=== PATIENT | female | born 1940 | race Caucasian/White ===

== ENCOUNTER 2018-03-25 16:07 | Emergency (ER) | payer MEDICARE, OTHER ==
[~2018-03-25] VITALS: Ht 152.4 cm; Wt 38.1 kg
--- NOTE | 2018-03-25 16:32 | NUR ---
LACERATION TO SCALP S/P HEAD VS DRESSER DENIES LOC, NECK, OR BACK PAIN
[2018-03-25] MEDS ORDERED: DICLOFENAC SODIUM 1% GEL (16:37)
[2018-03-25] MEDS ORDERED: MIRTAZAPINE 15 MG TABLET (16:37)
[2018-03-25] MEDS ORDERED: PREDNISONE 1 MG TABLET (16:37)
[2018-03-25] MEDS ORDERED: ACETAMINOPHEN ES 500 MG TABLET ONE (16:57)
[2018-03-25] MEDS ORDERED: ACETAMINOPHEN ES 500 MG TABLET PO ONE (17:00)
[2018-03-25 17:14] LABS: BASOPHILS % (AUTO) 0.4 % (0.0-2.0); EOSINOPHILS % (AUTO) 1.4 % (0.0-6.0); HEMATOCRIT 32 % (33-45); HEMOGLOBIN 11.2 g/dL (11.5-14.8); LYMPHOCYTES # (AUTO) 1.5 /CMM (0.8-4.8); LYMPHOCYTES % (AUTO) 25.1 % (20.0-44.0); MEAN CORPUSCULAR HGB CONC 35 g/dl (31.0-36.0); MEAN CORPUSCULAR VOLUME 93 fL (82-100); MONOCYTES # (AUTO) 0.6 /CMM (0.1-1.30); MONOCYTES % (AUTO) 10.5 % (2.0-12.0); NEUTROPHILS # (AUTO) 3.7 /CMM (1.8-8.9); NEUTROPHILS % (AUTO) 62.6 % (43.0-81.0); PLATELET COUNT (AUTO) 243 /CMM (150-450); RDW COEFFICIENT OF VARIATION 11.6 (11.5-15.0); RED BLOOD CELL COUNT(AUTO) 3.47 MIL/uL (4.0-5.2); WHITE BLOOD COUNT (AUTO) 5.9 K/uL (4.3-11.0)
[2018-03-25 17:21] LABS: CARBON DIOXIDE 29 mmol/L (21-32); CHLORIDE 96 mmol/L (98-107); CREATININE 0.9 mg/dL (0.6-1.3); GLUCOSE 138 mg/dL (74-106); SODIUM SERUM 131 mmol/L (136-145); UREA NITROGEN, BLOOD 19 mg/dL (7-18)
[2018-03-25] MEDS ORDERED: IV NS 0.9% 500 ML IV ONE (18:00)
--- NOTE | 2018-03-25 18:37 | NUR ---
Patient discharged to home in stable condition. Written and verbal after care instructions given. Patient verbalizes understanding of instruction.
--- NOTE | 2018-03-25 18:37 | NUR ---
IV removed. Catheter intact and site benign. Pressure and 4x4 applied to site. No bleeding noted.
[2018-03-25 18:39] VITALS: BP 134/74
== END 2018-03-25 18:41 | disposition home or self-care (01) ==
LOC: ER 16:31
DX: S01.01XA Laceration without foreign body of scalp, initial encounter (principal); S40.012A Contusion of left shoulder, initial encounter; W01.0XXA Fall on same level from slipping, tripping and stumbling without subsequent striking against object, initial encounter; Y93.01 Activity, walking, marching and hiking; Y92.091 Bathroom in other non-institutional residence as the place of occurrence of the external cause; Y99.8 Other external cause status
CPT/HCPCS: 36415; 70450-TC; 71045-TC; 72125-TC; 72170-TC; 73030-TC; 73060-TC; 80048-TC; 85025-TC; A4606; A6402; J7040; Z7610

== ENCOUNTER 2018-08-13 09:30 | Inpatient (IN) | payer MEDICARE, OTHER ==
[~2018-08-13] VITALS: Ht 142.2 cm; Wt 49.9 kg
[~2018-08-13 09:30] MED LIST: DICLOFENAC SODIUM 1% GEL; MIRTAZAPINE 15 MG TABLET; PREDNISONE 1 MG TABLET
--- NOTE | 2018-08-13 09:47 | NUR ---
CITLALY FROM HOME DT ABDOMINAL PAIN SINCE LAST NIGHT. PATIENT RECEIVED AWAKE AND ALERT, STILL CO ABDOMINAL DISCOMFORT. PER DTR PATIENT WAS DISCHARGED FROM [facility] DUE TO TONY OBSTRUCTION. PATIENT NOT IN DISTRESS AT THIS TIME. VSS. GOWNED PT AND PLACED ON TELE MONITOR. WILL CONT TO MONITOR
[2018-08-13] MEDS ORDERED: ONDANSETRON HCL/PF 4 MG/2 ML VIAL IVP ONE (10:00)
[2018-08-13] MEDS ORDERED: IV NS 0.9% 500 ML BAG IV ONE (10:00)
[2018-08-13] MEDS ORDERED: ONDANSETRON HCL/PF 4 MG/2 ML VIAL ONE (10:08)
[2018-08-13] MEDS ORDERED: [UNRECOGNIZED DRUG - CODE] IV (10:34)
[2018-08-13] MEDS ORDERED: PRED1TAB PO (10:34)
[2018-08-13] MEDS ORDERED: RANI150T8 PO (10:34)
[2018-08-13] MEDS ORDERED: LIPA1CAP21 PO (10:34)
[2018-08-13 10:39] LABS: CALCIUM, SERUM 8.4 mg/dL (8.5-10.1); CARBON DIOXIDE 23 mmol/L (21-32); CHLORIDE 100 mmol/L (98-107); CREATININE 0.6 mg/dL (0.6-1.3); GLUCOSE 123 mg/dL (74-106); POTASSIUM 3.1 mmol/L (3.5-5.1); SODIUM SERUM 134 mmol/L (136-145); UREA NITROGEN, BLOOD 22 mg/dL (7-18)
[2018-08-13 10:43] LABS: TROPONIN I 0.082 ng/mL (0.00-0.056)
[2018-08-13 10:45] LABS: BASOPHILS % (AUTO) 0.1 % (0.0-2.0); HEMATOCRIT 35 % (33-45); HEMOGLOBIN 11.7 g/dL (11.5-14.8); LYMPHOCYTES % (AUTO) 3.7 % (20.0-44.0); MEAN CORPUSCULAR HGB CONC 34 g/dl (31.0-36.0); MEAN CORPUSCULAR VOLUME 97 fL (82-100); MONOCYTES % (AUTO) 6.6 % (2.0-12.0); NEUTROPHILS % (AUTO) 89.6 % (43.0-81.0); PLATELET COUNT (AUTO) 257 /CMM (150-450); RDW COEFFICIENT OF VARIATION 12.8 (11.5-15.0); RED BLOOD CELL COUNT(AUTO) 3.61 MIL/uL (4.0-5.2); WHITE BLOOD COUNT (AUTO) 15.4 K/uL (4.3-11.0)
[2018-08-13 10:46] LABS: LYMPHOCYTES # (AUTO) 0.6 /CMM (0.8-4.8); NEUTROPHILS # (AUTO) 13.8 /CMM (1.8-8.9)
[2018-08-13 10:47] LABS: ALANINE AMINOTRANSFERASE 21 U/L (12-78); ALBUMIN 2.9 g/dL (3.4-5.0); ALKALINE PHOSPHATASE 79 U/L (46-116); ASPARTATE AMINOTRANSFERASE 34 U/L (15-37); BILIRUBIN,DIRECT 0.7 mg/dL (0.0-0.2); BILIRUBIN,TOTAL 1.2 mg/dL (0.2-1.0); LIPASE 38 U/L (73-393); TOTAL PROTEIN, SERUM 7.4 g/dL (6.4-8.2)
[2018-08-13 10:51] LABS: INR 1.1 (0.85-1.15)
--- NOTE | 2018-08-13 11:36 | NUR ---
CALLED [employer] EKG/ECG TECHNICIAN WAS PAGED.
--- NOTE | 2018-08-13 11:41 | NUR ---
RN NOTES RECEIVED REPORT FROM ER NOTES FOR PATIENT COMING IN FOR BOWEL OBSTRUCTION UNDER THE SERVICE OF [place] LAKE NP. WITH MED SURG ACUITY. ROOM PREPARED. BED ZERO-ED OUT. AWAITING PATIENT'S ARRIVAL
--- NOTE | 2018-08-13 11:41 | NUR ---
REPORT GIVEN TO ADILIA AMES
--- NOTE | 2018-08-13 12:20 | NUR ---
RN NOTES PATIENT CAME IN VIA GURNEY. TRANSPORTED TO BED FOR COMFORT. ALERT AND ORIENTED X2, [place]IZ[place] SPEAKING. WITH NASAL CANNULA AT 2 LPM, SATURATING AT 96, NO SHORTNESS OF BREATH NOTED, AFEBRILE AT 97.8. WITH G 20 IVC ON THE LEFT HAND INTACT AND PATENT ON FLUSHING. WITH COMPLAINTS OF STOMACHACHE DUE TO INABILITY TO MOVE BOWELS. ABDOMEN HARD TO PALPATE. ASSESSMENT OF THE SKIN DONE. MADE CLEAN AND COMFORTABLE. DAUGHTERS AT BEDSIDE. CALL LIGHT WITHIN REACH, WILL CONTINUE TO MONITOR
[2018-08-13] MEDS ORDERED: ACETAMINOPHEN 325 MG TABLET PO PRN (12:30)
[2018-08-13] MEDS ORDERED: Z GUARD REMEDY 2 OZ OINT TP PRN (12:30)
[2018-08-13] MEDS ORDERED: MORPHINE SULFATE INJ 4 MG/ML DISP.SYRIN IV PRN (12:30)
[2018-08-13] MEDS ORDERED: MAGNESIUM HYDROXIDE 30 ML UDC PO PRN (12:30)
[2018-08-13] MEDS ORDERED: ONDANSETRON HCL/PF 4 MG/2 ML VIAL IVP PRN (12:30)
[2018-08-13] MEDS ORDERED: MAG HYDROX/AL HYDROX/SIMETH 30 ML UDC PO PRN (12:30)
[2018-08-13] MEDS: IV D5/0.45 NACL 1,000 ML IV PRN (14:41)
[2018-08-13 16:00] VITALS: BP_SYST 136; BP_SYST 139; BP_DIAS 71; BP_DIAS 77
[2018-08-13] MEDS: POTASSIUM CL. PREMIX PERIPHER. 50 ML IV SCH ×2 (16:54→19:20)
[2018-08-13] MEDS ORDERED: BISACODYL SUPP (10 MG) 10 MG/SUPP.RECT SUPP.RECT RC PRN (17:00)
--- NOTE | 2018-08-13 17:00 | NUR ---
RN NOTES MANUAL DISIMPACTION DONE. ABLE TO EVACUATE MODERATE AMOUNT OF FECES. WILL CONTINUE TO MONITOR
--- NOTE | 2018-08-13 17:30 | NUR ---
RN NOTES ENDORSED FOR CONTINUITY OF CARE. NO ACUTE CHANGES THROUGH OUT. ALL NURSING NEEDS ATTENDED AND MET.
[2018-08-13] MEDS: CEFTRIAXONE 2 G in IV NS 0.9% 100 ML IV SCH (17:52)
[2018-08-13] MEDS: AZITHROMYCIN 250 MG TABLET PO SCH (17:59)
[2018-08-13] MEDS: LIPASE/PROTEASE/AMYLASE 1 EACH CAPSULE.DR PO SCH (17:59)
[2018-08-13 20:00] VITALS: BP 111/61
--- NOTE | 2018-08-13 20:00 | NUR ---
RN NOTES RECEIVED PT IN BED, ALERT AND ORIENTED X2, [place] SPEAKING. WITH NASAL CANNULA AT 2 LPM, SATURATING AT 96, NO SHORTNESS OF BREATH NOTED. WITH G 20 IVC ON THE LEFT HAND INTACT AND PATENT AND FLUID INFUSING.PT NPO. DAUGHTERS AT BEDSIDE. CALL LIGHT WITHIN REACH, WILL CONTINUE TO MONITOR
[2018-08-13] MEDS: FAMOTIDINE (20 MG) 20 MG TABLET PO SCH (21:51)
[2018-08-14] VITALS (43 sets, daily range): BP systolic 49–126; BP diastolic 36–80
[2018-08-14] MEDS ORDERED: POTASSIUM CL. PREMIX PERIPHER. 100 ML ONE (05:31)
[2018-08-14] MEDS: POTASSIUM CL. PREMIX PERIPHER. 50 ML IV SCH ×2 (05:33→06:43)
[2018-08-14] MEDS: IV D5/0.45 NACL 1,000 ML IV PRN (05:43)
--- NOTE | 2018-08-14 07:15 | NUR ---
MS RN OPENING NOTE RECEIVED PATIENT IN BED. ALERT ORIENTED X2. ON ROOM AIR, TOLERATING WELL. IN NO APPARENT DISTRESS OR DISCOMFORT AT THIS TIME. RESPIRATIONS EVEN AND UNLABORED. DENIES PAIN AND SOB AT THIS TIME. ABLE TO COMMUNICATE BASIC NEEDS. REPORTS BEING TIRED AND WANTING TO SLEEP. IVC PATENT AND INTACT, WITH FLUIDS RUNNING AT THIS TIME. PATIENT WITH DIAPER FOR ELIMINATION, KEPT CLEAN AND COMFORTABLE. ALL NEEDS ATTENDED, SAFETY MEASURES IN PLACE, BED IN LOW LOCKED POSITION, SIDE RAILS UP X2, DAUGHTER AT BEDSIDE, CALL LIGHT WITHIN EASY REACH, WILL CONTINUE TO MONITOR.
--- NOTE | 2018-08-14 07:39 | NUR ---
RN NOTES NO ACUTE CHANGES THROUGH OUT. ALL NURSING NEEDS ATTENDED AND MET.PT SEEN BY UROLOGIST.NO BM OVER NIGHT. WILL ENDORSE TO AM RN.
[2018-08-14 08:23] LABS: ALANINE AMINOTRANSFERASE 24 U/L (12-78); ALBUMIN 2.7 g/dL (3.4-5.0); ALKALINE PHOSPHATASE 86 U/L (46-116); ASPARTATE AMINOTRANSFERASE 38 U/L (15-37); BILIRUBIN,TOTAL 0.7 mg/dL (0.2-1.0); CALCIUM, SERUM 8.1 mg/dL (8.5-10.1); CARBON DIOXIDE 24 mmol/L (21-32); CHLORIDE 103 mmol/L (98-107); CREATININE 0.7 mg/dL (0.6-1.3); GLUCOSE 142 mg/dL (74-106); MAGNESIUM 2.1 mg/dL (1.8-2.4); PHOSPHORUS 1.3 mg/dL (2.5-4.9); POTASSIUM 4.9 mmol/L (3.5-5.1); SODIUM SERUM 134 mmol/L (136-145); TOTAL PROTEIN, SERUM 6.9 g/dL (6.4-8.2); UREA NITROGEN, BLOOD 26 mg/dL (7-18)
[2018-08-14 08:25] LABS: CHOLESTEROL 117 mg/dL (<200); HDL CHOLESTEROL 55 mg/dL (40-60); LDL 56 mg/dL (0-99); THYROID STIMULATING HORMONE 1.673 uIU/mL (0.358-3.74); TRIGLYCERIDES 61 mg/dL (30-150)
[2018-08-14 08:37] LABS: WHITE BLOOD COUNT (AUTO) 17.8 K/uL (4.3-11.0)
[2018-08-14 08:38] LABS: BASOPHILS % (AUTO) 0.1 % (0.0-2.0); HEMATOCRIT 39 % (33-45); HEMOGLOBIN 13.1 g/dL (11.5-14.8); LYMPHOCYTES # (AUTO) 0.7 /CMM (0.8-4.8); LYMPHOCYTES % (AUTO) 4.1 % (20.0-44.0); MEAN CORPUSCULAR HGB CONC 34 g/dl (31.0-36.0); MEAN CORPUSCULAR VOLUME 97 fL (82-100); MONOCYTES % (AUTO) 8.1 % (2.0-12.0); NEUTROPHILS # (AUTO) 15.6 /CMM (1.8-8.9); NEUTROPHILS % (AUTO) 87.7 % (43.0-81.0); PLATELET COUNT (AUTO) 294 /CMM (150-450); RDW COEFFICIENT OF VARIATION 13.1 (11.5-15.0); RED BLOOD CELL COUNT(AUTO) 4.05 MIL/uL (4.0-5.2)
[2018-08-14 08:39] LABS: MONOCYTES # (AUTO) 1.4 /CMM (0.1-1.30)
[2018-08-14] MEDS: PANTOPRAZOLE 40 MG VIAL IV SCH (08:40)
[2018-08-14] MEDS: LIPASE/PROTEASE/AMYLASE 1 EACH CAPSULE.DR PO SCH ×3 (08:40→18:00)
[2018-08-14] MEDS: predniSONE 1 MG TABLET PO SCH (08:40)
[2018-08-14] MEDS ORDERED: BISACODYL SUPP (10 MG) 10 MG/SUPP.RECT SUPP.RECT RC ONE (09:00)
[2018-08-14] MEDS ORDERED: POTASSIUM PHOSPHATE MM 15 MMOL in IV D5W 250 ML IV SCH (09:30)
--- NOTE | 2018-08-14 10:00 | NUR ---
DR. OSEI WAS AT BEDSIDE FOR CONSULTATION. COMMUNICATED HIS PLAN TO PLACE AN NG TUBE, DO ABDOMINAL XR, POSSIBLE MINERAL OIL ENEMA IF AVAILABLE, GOLYTELY, AND REGLAN 5MG IV EVERY [address] OSEI HE WILL PLACE ORDERS. WILL CONTINUE TO MONITOR AND CARRY OUT FURTHER ORDERS.
[2018-08-14] MEDS: POTASSIUM PHOSPHATE MM 7.5 MMOL in IV D5W 100 ML IV SCH ×2 (12:38→17:55)
--- NOTE | 2018-08-14 13:10 | NUR ---
Rapid responds called, pt is altered, not responding to pain stimuli, pupils fixed non reactive, in respiratory distress, non rebreather on at 15L, sat 93%, pt transferred to ICU and intubated, new central line placed (RIJ). Patient became responsive to pain stimuli after intubation, v/s stable, Dr. Faulkner and Alexander Brenner at the bedside.
--- NOTE | 2018-08-14 13:30 | NUR ---
MS CAREERS COUNSELLOR NOTE PATIENT WAS FOUND TO BE ALTERED AND NON-RESPONSIVE TO VERBAL OR PHYSICAL STIMULI. IMMEDIATELY CHECKED THE VITAL SIGNS WHICH SHOWED OXYGEN DESATURATION AND DROP IN SYSTOLIC AND DIASTOLIC BP. O2 SATURATION WAS FOUND TO BE 66% ON ROOM AIR, CONNECTED TO NASAL CANNULA AND INCREASED THE O2 FLOW TO 6L. MEANWHILE BP WAS RECORDED TO BE 75/50 WITH O2 INCREASING TO 75% ON 6L O2. HR OF 109. LEAD PROJECT ENGINEER WAS CALLED. EMELI GREEN NP WAS PAGED. MEANWHILE, ELEVATED PATIENT'S LOWER EXTREMITIES TO AID IN DECREASED BP. PATIENT WAS STILL UNRESPONSIVE TO PAINFUL STIMULI, PUPILS ROUND, FIXED AND NON-REACTIVE AT THE TIME. LEAD PROJECT ENGINEER ARRIVED WITHIN ONE MINUTE. ER DOCTOR, ICU NURSE, RT, HRIS ADMINISTRATOR, CHARGEBACK SPECIALIST, AND PRIMARY RN AT BEDSIDE. WAS CALLED OUT BY FABIOLA GREEN ON THE PHONE. REPORTED PATIENT'S CURRENT CONDITION. WAS ORDERED TO TRANSFER PATIENT TO ICU AND PLACE ON BIPAP MACHINE. REPORTED PATIENT'S CURRENT CODE STATUS OF DNI TO CLARIFY. DR GREEN ASKED TO SPEAK WITH PATIENT'S DAUGHTER REGARDING TREATMENT PREFERENCES. MEANWHILE PATIENT WAS PLACED ON FACE MASK 15L. LOWER EXTREMITIES ELEVATED, VITAL SIGNS IMPROVING BUT NO CHANGES NOTED IN PATIENT'S LOC. PATIENT WAS IMMEDIATELY TRANSFERRED TO ICU ROOM 262. REPORT GIVEN TO ADILIA GARCÍA AT BEDSIDE FOR RICK.
--- NOTE | 2018-08-14 13:35 | NUR ---
ICU/RN: Pt transferred from floor s/p INSTITUTIONAL COMMODITY ANALYST from [place], respiratory failure. Almaz York SERVICE TECH, Alexander Brenner SERVICE TECH and Dr Faulkner at bedside. Pt obtunded, difficult to arouse, unresponsive to pain, - gag and cough reflex. Pupils with sluggish reaction to light. Family at bedside, states ok to intubate however remains a DNR. Pt with no response to BiPAP, intubated. NGT inserted, ETT and NGT placement confirmed via XR. NGT to LIS. Alexander Brenner at bedside for central line insertion. Will continue monitoring.
--- NOTE | 2018-08-14 14:16 | NUR ---
RT NOTE PT TRANSFERRED FROM [facility]OM[facility] TO ICU, DUE TO DESATURATION, INTUBATED PT 7.5 ETT 20CM AT THE LIP, PT WITH STABLE VITAL SIGNS, WILL MONITOR CLOSELY
[2018-08-14] MEDS: IV NS 0.9% 1,000 ML IV PRN ×2 (15:16→18:50)
[2018-08-14] MEDS: NOREPINEPHRINE 8 MG in IV D5W 500 ML IV PRN (15:17)
[2018-08-14] MEDS: PROPOFOL 100 ML IV PRN (15:24)
--- NOTE | 2018-08-14 15:30 | NUR ---
ICU/RN: Pt hypotensive, started on Levophed as ordered; 1L NS bolus ongoing, afebrile, pt responds to painful stimuli. Pupils with equal sluggish reaction to light. FC with fair urine output. Pending lactic acid results.
[2018-08-14 15:52] LABS: ABG BASE EXCESS -6.9 mmol/L; ABG OXYGEN SATURATION 98.3 % (92.0-98.5); ABG PCO2 41.6 mmHg (35.0-45.0); ABG PH 7.286 (7.350-7.450); ABG PO2 129.3 mmHg (75.0-100.0); AaDO2 542.1 mmHg; COHb 0.8 % (0.5-1.5); O2Hb 97.5 % (94.0-97.0); PEEP,BG 5 cm H2O; SITE, ABG Right Radial; VT, ABG 400 mL
[2018-08-14] MEDS ORDERED: IV NS 0.9% 1,000 ML IV ONE ×2 (16:00→17:30)
[2018-08-14] MEDS: AZITHROMYCIN 250 MG TABLET PO SCH (17:00)
[2018-08-14] MEDS: CEFTRIAXONE 2 G in IV NS 0.9% 100 ML IV SCH (17:55)
--- NOTE | 2018-08-14 18:45 | NUR ---
ICU/RN: CT results relayed to FABIOLA York. Pt remains stable. Family at bedside, updated. Restraint and oral care rendered.
[2018-08-14] MEDS: AZITHROMYCIN 500 MG in IV D5W 250 ML IV SCH (18:50)
--- NOTE | 2018-08-14 19:30 | NUR ---
ICU/RN RECEIVED PT ON VENT VIA ORAL ETT W/ FI02 80%,SAT OF 96%.ON DIPRIVAN DRIP AT 15MCG/KG/MIN.LEVOPHED DRIP AT 12MCG/MIN.BILATERAL SOFT WRIST RESTRAINTS IN PLACE,BOTH WRIST CHECKED FOR CIRCULATION.LEVOPHED DRIP INCREASED TO 14MCG/MIN SBP=76MMHG.
[2018-08-14] MEDS: FAMOTIDINE (20 MG) 20 MG TABLET PO SCH (22:00)
--- NOTE | 2018-08-14 22:00 | NUR ---
ICU/RN. NGT TO LIS W/LIGHT BROWNISH DRAINAGE,NO BOWEL MOVEMENT,ABDOMEN FAIRLY SOFT.
[2018-08-15] VITALS (63 sets, daily range): BP systolic 80–159; BP diastolic 43–118
[2018-08-15] MEDS: IV NS 0.9% 1,000 ML IV PRN ×4 (03:11→20:49)
--- NOTE | 2018-08-15 03:34 | NUR ---
RT Pt orally intubated on [facility] vent on ordered settings. pt appears comfortable w/ no resp distress noted. ETT secure and patent. sx for small amt of secretions. Addendum: 08/15/18 at 0335 by CONSTANTIN ZIMMER RT Amended: Links added.
[2018-08-15] MEDS: PROPOFOL 100 ML IV PRN ×2 (03:44→17:02)
[2018-08-15] MEDS: NOREPINEPHRINE 8 MG in IV D5W 500 ML IV PRN (03:47)
[2018-08-15 05:06] LABS: ALANINE AMINOTRANSFERASE 35 U/L (12-78); ALBUMIN 2.1 g/dL (3.4-5.0); ALKALINE PHOSPHATASE 78 U/L (46-116); ASPARTATE AMINOTRANSFERASE 88 U/L (15-37); BILIRUBIN,TOTAL 0.5 mg/dL (0.2-1.0); CALCIUM, SERUM 7.5 mg/dL (8.5-10.1); CARBON DIOXIDE 21 mmol/L (21-32); CREATININE 0.9 mg/dL (0.6-1.3); GLUCOSE 164 mg/dL (74-106); MAGNESIUM 1.9 mg/dL (1.8-2.4); PHOSPHORUS 1.9 mg/dL (2.5-4.9); TOTAL PROTEIN, SERUM 5.9 g/dL (6.4-8.2); UREA NITROGEN, BLOOD 34 mg/dL (7-18)
[2018-08-15 05:21] LABS: CHLORIDE 103 mmol/L (98-107); POTASSIUM 4.2 mmol/L (3.5-5.1); SODIUM SERUM 132 mmol/L (136-145)
[2018-08-15 05:25] LABS: BASOPHILS % (AUTO) 0.1 % (0.0-2.0); HEMATOCRIT 38 % (33-45); HEMOGLOBIN 12.7 g/dL (11.5-14.8); LYMPHOCYTES # (AUTO) 0.8 /CMM (0.8-4.8); LYMPHOCYTES % (AUTO) 5.4 % (20.0-44.0); MEAN CORPUSCULAR HGB CONC 33 g/dl (31.0-36.0); MEAN CORPUSCULAR VOLUME 98 fL (82-100); MONOCYTES # (AUTO) 0.7 /CMM (0.1-1.30); MONOCYTES % (AUTO) 4.3 % (2.0-12.0); NEUTROPHILS # (AUTO) 13.7 /CMM (1.8-8.9); NEUTROPHILS % (AUTO) 90.2 % (43.0-81.0); PLATELET COUNT (AUTO) 271 /CMM (150-450); RDW COEFFICIENT OF VARIATION 13.2 (11.5-15.0); RED BLOOD CELL COUNT(AUTO) 3.94 MIL/uL (4.0-5.2); WHITE BLOOD COUNT (AUTO) 15.2 K/uL (4.3-11.0)
--- NOTE | 2018-08-15 06:00 | NUR ---
ICU/RN REMAINS ON DIPRIVAN DRIP AND LEVOPHED DRIP ADJUSTED NECESSARY ,SEE IV SPREAD SHEET.SUCTIONED FOR SCANT PINK-TINGED SECRETIONS FROM ETT.ORAL CARE DONE.MONITOR SHOWS NSR.
[2018-08-15 06:20] LABS: BAND % (MANUAL) 31 % (0.0-5.0); LYMPHOCYTES % (MANUAL) 3 % (16-48); MONOCYTES % (MANUAL) 7 % (0-11.0); NEUTROPHILS % (MANUAL) 59 (42-76)
[2018-08-15] MEDS: LIPASE/PROTEASE/AMYLASE 1 EACH CAPSULE.DR PO SCH ×3 (07:58→17:11)
[2018-08-15] MEDS: predniSONE 1 MG TABLET PO SCH (08:00)
[2018-08-15] MEDS: PANTOPRAZOLE 40 MG VIAL IV SCH (08:06)
--- NOTE | 2018-08-15 08:30 | NUR ---
RT PATIENT REC'D ORALLY INTUBATED ON [facility] VENT WITH ORDERED SETTINGS OLVIN WELL. VENT ALARMS CHECKED + AUDIBLE. CUFF CHECKED PRODUCTION GRADER. B/S DIM. PATIENT AIRWAY SUCTIONED WITH SMALL AMT OF PALE ELIZONDO SEMITHICK SECRETIONS. PATIENT NON VERBAL, NO DISTRESS NOTED AT THIS TIME. AMBU BAG AT [facility]. Addendum: 08/15/18 at 1756 by MARINA GRACE RT Amended: Links added.
--- NOTE | 2018-08-15 09:45 | NUR ---
ICU/RN: Dr Campos at bedside, discussing POC with family. Updated on pt status with BM x2 s/p intubation yesterday, hypoactive BS, scant NGT output. Orders noted and carried out. No surgical intervention at this time. Family in agreement with plan.
[2018-08-15 09:57] LABS: ABG BASE EXCESS -7.3 mmol/L; ABG OXYGEN SATURATION 95.4 % (92.0-98.5); ABG PCO2 28.3 mmHg (35.0-45.0); ABG PO2 75.8 mmHg (75.0-100.0); AaDO2 320.9 mmHg; COHb 0.8 % (0.5-1.5); MetHb 0.3 % (0.0-1.5); O2Hb 94.4 % (94.0-97.0); SITE, ABG Right Radial
[2018-08-15] MEDS ORDERED: PEG 3350/NA SULF,BICARB,CL/KCL 4,000 ML BOTTLE PO ONE (10:00)
[2018-08-15] MEDS ORDERED: MINERAL OIL 133 ML (PYXIS) 1 EA ENEMA RC ONE (10:00)
--- NOTE | 2018-08-15 10:00 | NUR ---
decreased peep to +[address] gray orders Addendum: 08/15/18 at 1006 by HEIDI STEARNS RT Amended: Links added.
--- NOTE | 2018-08-15 10:00 | NUR ---
ICU/RN: Dr Faulkner rounds; case dw family. ABG and vent changes reviewed and noted. Will cont to monitor pt.
[2018-08-15] MEDS ORDERED: Sodium Phosphate 7.5 MMOL in IV D5W 100 ML IV ONE (11:00)
--- NOTE | 2018-08-15 11:21 | NUR ---
RT PER DR JOHANNA SALAZAR ETT WAS PULLED BACK 2CM AND SECURED AT 18CM TOP LIP VIA ANCHOR FAST. ADILIA GARCÍA AWARE Addendum: 08/15/18 at 1122 by MARINA GRACE RT Amended: Links added.
[2018-08-15] MEDS: METOCLOPRAMIDE HCL 10 MG/2 ML VIAL IV SCH ×2 (11:24→17:11)
--- NOTE | 2018-08-15 14:30 | NUR ---
ICU/RN: Alexander Brenner, FABIOLA and Almaz York NP at bedside for GI decompression. Anoscope inserted with immediate projectile release of gas and large amounts of brown liquid stool. Successful decompression noted with pt abdomen now soft and non-distended. F/U KUB pending. Family updated.
[2018-08-15] MEDS: CEFTRIAXONE 2 G in IV NS 0.9% 100 ML IV SCH (17:02)
[2018-08-15] MEDS: AZITHROMYCIN 500 MG in IV D5W 250 ML IV SCH (17:53)
--- NOTE | 2018-08-15 19:10 | NUR ---
ICU/RN: Pt in stable condition, no distress noted. IVF, levophed and diprivan infusing well thru RIJ. Abd soft and non-distended, rectal tube in place. NGT clamped. Care endorsed to PM RN for RICK.
--- NOTE | 2018-08-15 19:14 | NUR ---
ELECTRONICS TECHNICIAN APPRENTICE. INITIAL ASSESSMENT. RECEIVED THE PT REST ON THE BED, ORALLY INTUBATED. SEDATED WITH DIPRIVAN. ETT 7.5,AC 16,TV 450,FIO2 60%. SAT 98%. NO ACUTE DISTRESS NOTED. BODY LINE FINISHER SHOWING S EILEEN. IV RT IJ TRIPLE LUMEN. DIPRIVAN 20MCG/KG/MIN,NS 250 ML/H,LEVOPHED 4MCG/MIN, RT NARE NGT INTACT. PT IS STRICT NPO. FC PATENT. RECTAL TUBE INTACT. HOB ELEVATED. TURN AND REPOSITION Q2H. WILL CONTINUE TO MONITOR VITALS.
--- NOTE | 2018-08-15 19:37 | NUR ---
[facility] ordered settings. pt appears comfortable w/ no resp distress noted. ETT secure and patent. sx for small amt of secretions. Ventilator plugged into red outlet, ambu bag at bedside. Addendum: 08/15/18 at 1938 by MANDY TIPTON RT Amended: Links added.
[2018-08-15] MEDS: FAMOTIDINE (20 MG) 20 MG TABLET PO SCH (22:00)
[2018-08-16] VITALS (98 sets, daily range): BP systolic 77–147; BP diastolic 28–78
[2018-08-16] MEDS: METOCLOPRAMIDE HCL 10 MG/2 ML VIAL IV SCH ×5 (00:16→23:50)
[2018-08-16] MEDS: IV NS 0.9% 1,000 ML IV PRN ×2 (00:17→06:15)
--- NOTE | 2018-08-16 00:30 | NUR ---
RN NOTE. IVF NS SCAND, NOT STARTED, ORDER TOTAL 2L . TKO @ 5ML/H
--- NOTE | 2018-08-16 03:19 | NUR ---
COMPLAINT OPERATOR. AM CARE, ORAL CARE, BED BATH GIVEN. LINEN CHANGED. REMAINING SAME VENT SETTING TOLERATED WELL. SAT 95%. NO ACUTE DISTRESS NOTED. CASHIER GAMBLING SHOWING S EILEEN. IV RT IJ DIPRIVAN 10MCG/KG/MIN, LEVOPHED 3MCG/MIN. HOB ELEVATED, FC PATENT URINE DRAINING. PT IS NPO. FLEXA SEAL INTACT. AFEBRILE. TURN AND REPOSITION Q2H. WILL CONTINUE TO MONITOR VITALS.
[2018-08-16] MEDS: NOREPINEPHRINE 8 MG in IV D5W 500 ML IV PRN ×2 (03:24→16:38)
[2018-08-16] MEDS: PROPOFOL 100 ML IV PRN ×3 (03:25→21:45)
[2018-08-16 04:39] LABS: EOSINOPHILS % (AUTO) 0.1 % (0.0-6.0); HEMATOCRIT 33 % (33-45); HEMOGLOBIN 10.9 g/dL (11.5-14.8); LYMPHOCYTES # (AUTO) 0.8 /CMM (0.8-4.8); LYMPHOCYTES % (AUTO) 7.4 % (20.0-44.0); MEAN CORPUSCULAR HGB CONC 34 g/dl (31.0-36.0); MEAN CORPUSCULAR VOLUME 98 fL (82-100); MONOCYTES # (AUTO) 0.1 /CMM (0.1-1.30); NEUTROPHILS # (AUTO) 10.2 /CMM (1.8-8.9); NEUTROPHILS % (AUTO) 91.5 % (43.0-81.0); PLATELET COUNT (AUTO) 151 /CMM (150-450); RDW COEFFICIENT OF VARIATION 13.4 (11.5-15.0); RED BLOOD CELL COUNT(AUTO) 3.33 MIL/uL (4.0-5.2); WHITE BLOOD COUNT (AUTO) 11.2 K/uL (4.3-11.0)
[2018-08-16 04:48] LABS: CARBON DIOXIDE 20 mmol/L (21-32); CHLORIDE 109 mmol/L (98-107); CREATININE 0.6 mg/dL (0.6-1.3); GLUCOSE 108 mg/dL (74-106); POTASSIUM 3.3 mmol/L (3.5-5.1); SODIUM SERUM 138 mmol/L (136-145); UREA NITROGEN, BLOOD 25 mg/dL (7-18)
[2018-08-16 04:50] LABS: APPEARANCE,URINE CLEAR (CLEAR); BILIRUBIN,URINE NEGATIVE (NEGATIVE); BLOOD, URINE 2+ Ery/uL (NEGATIVE); COLOR,URINE YELLOW (YELLOW); KETONES,URINE NEGATIVE (NEGATIVE); LEUKOCYTE ESTERASE ,URINE NEGATIVE (NEGATIVE); NITRITE, URINE NEGATIVE (NEGATIVE); PH,URINE 5.5 (5.0-8.0); PROTEIN,URINE NEGATIVE (NEGATIVE); UGLUCOSE TRACE mg/dL (NEGATIVE); UROBILINOGEN,URINE 0.2 EU/dL (0.2)
[2018-08-16 04:53] LABS: ALANINE AMINOTRANSFERASE 36 U/L (12-78); ALBUMIN 1.5 g/dL (3.4-5.0); ALKALINE PHOSPHATASE 61 U/L (46-116); ASPARTATE AMINOTRANSFERASE 70 U/L (15-37); BILIRUBIN,TOTAL 0.3 mg/dL (0.2-1.0); MAGNESIUM 1.6 mg/dL (1.8-2.4); PHOSPHORUS 1.5 mg/dL (2.5-4.9); TOTAL PROTEIN, SERUM 4.3 g/dL (6.4-8.2)
[2018-08-16 04:54] LABS: BACTERIA,URINE None seen /HPF (None Seen); SQUAMOUS EPITHELIAL CELL,UR Rare /HPF (None Seen); WBC,URINE 0-2 /HPF (0-3)
[2018-08-16 04:55] LABS: TROPONIN I 0.073 ng/mL (0.00-0.056)
--- NOTE | 2018-08-16 07:36 | NUR ---
RT NOTE RECEIVED PT MECHANICALLY VENTILATED VIA 7.5 ETT 18 CM AT LIP. CUFF INFLATED. ETT SECURE. SETTINGS PRESCRIBED. ALARMS SET PER PROTOCOL AND AUDIBLE. VENT PLUGGED IN TO RED OUTLET. AMBU BAG AT BED SIDE. NO DISTRESS NOTED AT MOMENT. Addendum: 08/16/18 at 0737 by BETTIE LUGO RT Amended: Links added.
[2018-08-16] MEDS: LIPASE/PROTEASE/AMYLASE 1 EACH CAPSULE.DR PO SCH ×3 (07:46→17:12)
--- NOTE | 2018-08-16 08:00 | NUR ---
PAPER GUILLOTINE OPERATOR- Unable to obtain oral/axillary temp. Rectal temp obtained= 91.6. Will place mady bergeron.
[2018-08-16] MEDS: predniSONE 1 MG TABLET PO SCH (08:22)
[2018-08-16] MEDS: PANTOPRAZOLE 40 MG VIAL IV SCH (08:27)
[2018-08-16] MEDS: POTASSIUM CL. PREMIX PERIPHER. 50 ML IV SCH ×4 (09:10→12:19)
[2018-08-16] MEDS: Magnesium 1GM/D5W 100ML PREMIX 100 ML IV SCH ×2 (09:10→10:23)
[2018-08-16 09:17] LABS: ABG BASE EXCESS -7.3 mmol/L; ABG OXYGEN SATURATION 95.5 % (92.0-98.5); ABG PH 7.366 (7.350-7.450); ABG PO2 80.9 mmHg (75.0-100.0); AaDO2 241.9 mmHg; MetHb 0.3 % (0.0-1.5); O2Hb 94.3 % (94.0-97.0); PEEP,BG 0 cm H2O; SITE, ABG Right Radial; VENT MODE, BG AC 16 450 50% +0; VT, ABG 450 mL
[2018-08-16] MEDS ORDERED: POTASSIUM PHOSPHATE MM 7.5 MMOL in IV D5W 100 ML IV SCH (11:00)
--- NOTE | 2018-08-16 14:30 | NUR ---
SOCIAL SCIENTISTANJU GREEN TELEVISION OPERATOR AT BEDSIDE. TELEVISION OPERATOR STATES SHE WILL ORDER GOLYTELY TO BE ADMINISTERED TO PT AND REPEAT KUB TO BE DONE TOMORROW MORNING. WILL CONTINUE TO MONITOR.
[2018-08-16] MEDS ORDERED: PEG 3350/NA SULF,BICARB,CL/KCL 4,000 ML BOTTLE PO ONE (15:30)
--- NOTE | 2018-08-16 16:30 | NUR ---
DISASTER DIRECTORMadhavi LIN RECEIVED FROM PHARMACY. WILL ADMINISTER MED ORDERED.
[2018-08-16] MEDS: CEFTRIAXONE 2 G in IV NS 0.9% 100 ML IV SCH (16:31)
[2018-08-16] MEDS: AZITHROMYCIN 500 MG in IV D5W 250 ML IV SCH (17:36)
--- NOTE | 2018-08-16 19:30 | NUR ---
MANAGER ENVIRONMENTAL INITIAL NOTE RECEIVED PATIENT SEDATED, NO S/S OF PAIN OR DISCOMFORT. NO RESPIRATORY DISTRESS NOTED. ETT 7.5CM, 18CM AT THE LIP WITH VENT SETTINGS AC 16, TV 450, FIO2 65%, PEEP 0. SKIN WARM AND DRY TO TOUCH. WITH ELVIA HUGGER ON. RIGHT NARE NGT PATENT AND INTACT, IN PLACE, CLAMPED. F/C PATENT, INTACT, DRAINING BY GRAVITY. FLEXISEAL IN PLACE, NO OUTPUT NOTED. WITH RIJ PATENT AND INTACT, WITH DIPRIVAN RUNNING AT 30MCG/KG/MIN, LEVO AT 9MCG/MIN, AND NS TKO. WITH BILATERAL SOFT WRIST RESTRAINTS IN PLACE, WITH GOOD CIRCULATION. HOB ELEVATED. TURNED AND REPOSITIONED. SIDE RAILS UP LOCKED. BED KEPT AT LOWEST POSITION. WILL CONTINUE TO MONITOR.
[2018-08-16] MEDS: FAMOTIDINE (20 MG) 20 MG TABLET PO SCH (21:24)
[2018-08-17] VITALS (102 sets, daily range): BP systolic 85–129; BP diastolic 40–82
--- NOTE | 2018-08-17 04:06 | NUR ---
PHOTOGRAPHER SCIENTIFIC NOTE RELAYED TO DR. MOY REGARDING PATIENT WITH LOW URINE OUTPUT 125 ML SINCE BEGINNING OF SHIFT. LOW RECTAL TUBE OUTPUT, PATIENT WITH FIRM ABDOMEN, AND NOTED WITH VAGINAL LABIA SWELLING. WITH NEW ORDERS GIVE NS 500ML BOLUS AND THEN NS AT 80ML/HR. CONTINUE GOLYTELY. NOTED AND WILL CARRY OUT. WILL CONTINUE TO MONITOR.
[2018-08-17] MEDS ORDERED: IV NS 0.9% 1,000 ML IV PRN (04:30)
[2018-08-17] MEDS ORDERED: IV NS 0.9% 500 ML IV ONE (04:30)
[2018-08-17 04:40] LABS: BASOPHILS % (AUTO) 0.2 % (0.0-2.0); HEMATOCRIT 37 % (33-45); HEMOGLOBIN 12.3 g/dL (11.5-14.8); LYMPHOCYTES # (AUTO) 1.1 /CMM (0.8-4.8); LYMPHOCYTES % (AUTO) 6.7 % (20.0-44.0); MEAN CORPUSCULAR HGB CONC 33 g/dl (31.0-36.0); MEAN CORPUSCULAR VOLUME 98 fL (82-100); MONOCYTES # (AUTO) 0.6 /CMM (0.1-1.30); MONOCYTES % (AUTO) 3.6 % (2.0-12.0); NEUTROPHILS # (AUTO) 14.6 /CMM (1.8-8.9); NEUTROPHILS % (AUTO) 89.5 % (43.0-81.0); PLATELET COUNT (AUTO) 209 /CMM (150-450); RDW COEFFICIENT OF VARIATION 13.5 (11.5-15.0); RED BLOOD CELL COUNT(AUTO) 3.83 MIL/uL (4.0-5.2); WHITE BLOOD COUNT (AUTO) 16.3 K/uL (4.3-11.0)
[2018-08-17 04:54] LABS: CALCIUM, SERUM 7.3 mg/dL (8.5-10.1); CARBON DIOXIDE 19 mmol/L (21-32); CHLORIDE 102 mmol/L (98-107); CREATININE 0.8 mg/dL (0.6-1.3); GLUCOSE 132 mg/dL (74-106); MAGNESIUM 2.2 mg/dL (1.8-2.4); PHOSPHORUS 2.7 mg/dL (2.5-4.9); POTASSIUM 4.1 mmol/L (3.5-5.1); SODIUM SERUM 131 mmol/L (136-145); UREA NITROGEN, BLOOD 25 mg/dL (7-18)
[2018-08-17 05:00] LABS: TROPONIN I 0.066 ng/mL (0.00-0.056)
[2018-08-17] MEDS: METOCLOPRAMIDE HCL 10 MG/2 ML VIAL IV SCH ×4 (05:00→23:52)
[2018-08-17 05:25] LABS: BAND % (MANUAL) 2 % (0.0-5.0); LYMPHOCYTES % (MANUAL) 7 % (16-48); MONOCYTES % (MANUAL) 4 % (0-11.0); NEUTROPHILS % (MANUAL) 87 (42-76)
--- NOTE | 2018-08-17 06:29 | NUR ---
STRIPER SPRAY GUN NOTE RT AT BEDSIDE, SPO2 91% ON 65% FIO2. FIO2 INCREASED TO 80% SPO2 94%. WILL CONTINUE TO MONITOR.
--- NOTE | 2018-08-17 06:47 | NUR ---
RT PT RECEIVED INTUBATED ON [facility] VENT WITH NOTED SETTING. ETT PATENT AND SECURE VIA ACHOR FAST. PT TOLERATING SETTING WELL. NO SOB OR RESP DISTRESS NOTED ON SHIFT. VENT TO RED OUTLET. ALARM SET AND AUDIBLE. SUCTIONED LARGE AMOUNT OF THICK WHITE SECRETIONS PRN. FIO2 TITRATED PER MD ORDERS TO MAINTAIN SPO2 94% OR > Addendum: 08/17/18 at 0649 by SIGRID LEE RT Amended: Links added.
[2018-08-17] MEDS: NOREPINEPHRINE 8 MG in IV D5W 500 ML IV PRN ×2 (07:10→17:45)
[2018-08-17] MEDS: PROPOFOL 100 ML IV PRN ×3 (08:08→22:56)
[2018-08-17] MEDS: LIPASE/PROTEASE/AMYLASE 1 EACH CAPSULE.DR PO SCH ×3 (08:09→17:29)
[2018-08-17] MEDS: predniSONE 1 MG TABLET PO SCH (08:09)
[2018-08-17] MEDS: PANTOPRAZOLE 40 MG VIAL IV SCH (08:09)
[2018-08-17 08:28] LABS: ABG BASE EXCESS -8.7 mmol/L; ABG OXYGEN SATURATION 95.7 % (92.0-98.5); ABG PCO2 35.3 mmHg (35.0-45.0); ABG PH 7.298 (7.350-7.450); AaDO2 451.3 mmHg; COHb 1.6 % (0.5-1.5); O2Hb 94.2 % (94.0-97.0); PEEP,BG 0 cm H2O; SITE, ABG Left Radial; VT, ABG 450 mL
--- NOTE | 2018-08-17 09:09 | NUR ---
per dr gray, increase AC to 20 verbal readback done
--- NOTE | 2018-08-17 09:30 | NUR ---
SEDATION VACATION SEDATION VACATION TITRATION PER PROTOCOL, SEE IV SPREADSHEET LABORED BREATHING NOTED UPON 0 MCG/MIN. DAUGHTER AT BEDSIDE GUIDING AND REORIENTING PATIENT. PATIENT ORIENTED TO ENVIRONMENT. PATIENT RESPONDING TO NAME AND TOUCH BY MOVING HER HEAD. GAG REFLEX PRESENT. HOWEVER, PATIENT UNABLE TO FOLLOW COMMANDS, MILD AGITATION NOTED. PROPOFOL TITRATED UP PER PROTOCOL.
--- NOTE | 2018-08-17 10:00 | NUR ---
NO VENT WEANING TODAY PER DR VALDEZ
[2018-08-17] MEDS: MINERAL OIL 133 ML (PYXIS) 1 EA ENEMA RC PRN ×2 (10:59→17:35)
--- NOTE | 2018-08-17 13:54 | NUR ---
PER RILEY LE TODAY SEN[place]OT 2 TABLETS Q 12 HOURS CONTINUE WITH ENEMAS VERBAL READBACK DONE
[2018-08-17] MEDS ORDERED: PEG 3350/NA SULF,BICARB,CL/KCL 4,000 ML BOTTLE PO ONE (14:00)
[2018-08-17] MEDS: CEFTRIAXONE 2 G in IV NS 0.9% 100 ML IV SCH (17:28)
[2018-08-17] MEDS: AZITHROMYCIN 500 MG in IV D5W 250 ML IV SCH (17:29)
--- NOTE | 2018-08-17 18:39 | NUR ---
PT. 78 Y OLD FEMALE NON VERBAL ORALLY INTUBATED ETT#7.5 @18 CM LIP LINE @0700 RECEIVED ON VENT. OLVIN WITH NOTED SETTINGS. @0915 RR TO [address] VALDEZ ORDER, SX'D FOR MOD AMT OF THICK ELIZONDO SECRETIONS. VENT ALARMS SET AND FUNCTIONAL. B/S RALES BILATERALLY, VENT CHANGES DONE PER DR. JOSÉ MIGUEL SALAZAR RN INFORMED ALL CHANGES AT THE BEDSIDE. AMBU BAG AT BEDSIDE. VENT PLUGGED INTO RED OUTLET. HME CHANGED, PT. REMAIN STABLE. WILL CONTINUE TO MONITOR. REPORT WILL PASS TO PM SHIFT. Addendum: 08/17/18 at 1840 by ELINA CARBONE RT Amended: Links added.
--- NOTE | 2018-08-17 18:41 | NUR ---
PER EMELI GREEN SENIOR NET SOFTWARE DEVELOPER-- DC FLUID ORDER OF NS AT 80ML/HOUR VERBAL READBACK DONE
--- NOTE | 2018-08-17 20:00 | NUR ---
ICU/RN. RECEIVED PT ON VENT VIA ORAL ETT WITH FI02 OF 80 % SATURATION OF 89-94%.ON DIPRIVAN DRIP AT 20MCG/KG/MIN.LEVOPHED DRIP AT 8MCG/MIN. FLEXISEAL INTACT.GOLYTELY GIVEN VIA NGT.W/ANASARCA.
[2018-08-17] MEDS: SENNOSIDES 8.6 MG TABLET PO SCH (20:44)
--- NOTE | 2018-08-17 21:39 | NUR ---
RECEIVED PT ORALLY INTUBATED ON VENT. 7.5 ETT SECURED AT 18CM AT THE LIP VIA ANCHOR FAST. NO RESP DISTRESS NOTED. PT TOLERATING VENT SETTINGS. SX'D FOR SML AMT OF THIN WHITE SECRETIONS. VENT ALARMS SET AND AUDIBLE. AMBU BAG AT BEDSIDE. WILL CONTINUE TO MONITOR. Addendum: 08/17/18 at 2141 by ALAINA HUBBARD RT Amended: Links added.
[2018-08-17] MEDS: PIPERACILLIN /TAZOBACTAM 3.375 G in IV D5W 50 ML IV SCH (23:50)
[2018-08-17] MEDS: FAMOTIDINE (20 MG) 20 MG TABLET PO SCH (23:51)
[2018-08-18] VITALS (78 sets, daily range): BP systolic 34–116; BP diastolic 20–76
[2018-08-18] MEDS ORDERED: IV NS 0.9% 250 ML IV PRN
--- NOTE | 2018-08-18 02:00 | NUR ---
ICU/RN LARGE AMT.OF LIQUID BROWNISH STOOL LEAKED AROUND FLEXISEAL,SATURATED 2CHUX,DIAPER AND LINEN,BED BATH DONE.
[2018-08-18 05:10] LABS: ALANINE AMINOTRANSFERASE 41 U/L (12-78); ALBUMIN 1.5 g/dL (3.4-5.0); ALKALINE PHOSPHATASE 104 U/L (46-116); ASPARTATE AMINOTRANSFERASE 45 U/L (15-37); BILIRUBIN,TOTAL 0.4 mg/dL (0.2-1.0); CALCIUM, SERUM 7.5 mg/dL (8.5-10.1); CARBON DIOXIDE 19 mmol/L (21-32); CHLORIDE 104 mmol/L (98-107); GLUCOSE 92 mg/dL (74-106); MAGNESIUM 2.1 mg/dL (1.8-2.4); PHOSPHORUS 3.4 mg/dL (2.5-4.9); POTASSIUM 3.2 mmol/L (3.5-5.1); SODIUM SERUM 133 mmol/L (136-145); TOTAL PROTEIN, SERUM 4.9 g/dL (6.4-8.2); UREA NITROGEN, BLOOD 27 mg/dL (7-18)
[2018-08-18] MEDS: PIPERACILLIN /TAZOBACTAM 3.375 G in IV D5W 50 ML IV SCH ×2 (05:55→11:51)
[2018-08-18] MEDS: METOCLOPRAMIDE HCL 10 MG/2 ML VIAL IV SCH ×2 (05:59→11:49)
--- NOTE | 2018-08-18 06:30 | NUR ---
ICU/RN REPORT OF ABDOMINAL X-RAY RESULT RELAYED VIA PHONE TO AND .MADE KNOWN TO DAY SHIFT TO FOLLOW UP ON ABOVE DURING REPORT
--- NOTE | 2018-08-18 07:41 | NUR ---
ICU/RN PLACED ON ELVIA HUGGER CORE TEMP=96.2
--- NOTE | 2018-08-18 07:48 | NUR ---
RT PT RECEIVED ORALLY INTUBATED WITH A 7.5 ETT SECURED AT 18CM AT THE LIP LINE. PT IS AWAKE BUT DOES NOT FOLLOW COMMANDS. VENT ALARMS ARE SET AND AUDIBLE WITH BVM BY BEDSIDE. CORE JAVA SOFTWARE ENGINEER CUFF PRESSURE NOTED. VENT IS PLUGGED INTO RED OUTLET. PT SX'D SMALL THICK PALE YELLOW SECRETIONS. NO RESPIRATORY DISTRESS NOTED AT THIS TIME, WILL CONTINUE TO MONITOR. Addendum: 08/18/18 at 0857 by KOMAL BREEN RT Amended: Links added.
[2018-08-18] MEDS: LIPASE/PROTEASE/AMYLASE 1 EACH CAPSULE.DR PO SCH ×2 (08:00→13:00)
[2018-08-18] MEDS: NOREPINEPHRINE 8 MG in IV D5W 500 ML IV PRN (08:10)
[2018-08-18] MEDS: PROPOFOL 100 ML IV PRN (08:10)
[2018-08-18] MEDS: predniSONE 1 MG TABLET PO SCH (08:31)
[2018-08-18] MEDS: SENNOSIDES 8.6 MG TABLET PO SCH (08:31)
[2018-08-18] MEDS: PANTOPRAZOLE 40 MG VIAL IV SCH (08:33)
--- NOTE | 2018-08-18 08:34 | NUR ---
CROSSCUTTER NOTE RCVD PT SEDATED, INTUBATED WITH MARGINAL SATURATION AT 89-90% ON 80% FIO2 THIS WAS TITRATED TO 85% BY RT. SR ON MONITOR. GENERALIZED PITTING EDEMA. NG-TUBE CLAMPED, PLACEMENT VERIFIED, NO RESIDUAL OBTAINED. FLEXISEAL LEAKING LIQUID BROWN STOOL. VILLANUEVA WITH MINIMAL URINARY OUTPUT OBSERVED WILL CONTINUE TO MONITOR. RIGHT TLC C/D/I/PATENT. NO S/O INFILTRATION/PHLEBITIS OBSERVED, LEVE AND DIPRIVAN INFUSING ORDERED. BED IN LOW AND LOCKED POSITION. DR. SHERIDAN WAS PAGED THIS AM HE WAS INFORMED OF THE FINDINGS OF THE KUB AND STATED THAT FAMILY DOES NOT WANT TO PURSUE SURGICAL OPTIONS AND THAT HE'S NOT DESIGN ENGINEERING TECHNICIAN. PT'S DAUGHTER, HARINI CALLED TO VERIFY THIS INFORMATION. HARINI IN PT'S ROOM AT THIS TIME AFTER SPEAKING WITH DR. BENZ AT PT'S BEDSIDE DECIDED NOT TO PURSUE SURGERY AND WAIT UNTIL THIS AFTERNOON TO TERMINALLY EXTUBATE PT WAITING FOR FAMILY FLYING IN FROM OUT OF TOWN. WILL CONTINUE TO MONITOR PT. PO/NG MEDS HELD DUE TO PERFORATED BOWEL.
[2018-08-18] MEDS: POTASSIUM CL. PREMIX PERIPHER. 50 ML IV SCH ×2 (10:30→11:30)
--- NOTE | 2018-08-18 10:34 | NUR ---
NAM was informed by FABIOLA Romero that pt's family is requesting a copy cutter so that pt. can be anointed. NAM contacted [facility] and spoke to Mabel who informed SW she will check in with the copy cutter as to what time he can come to [facility]. Mabel will call NAM back. Addendum: 08/18/18 at 1102 by ERMA BROWNING NAM received a call back from Mabel at [facility] informing NAM that Father Jerad Busch from [facility] will be coming to see the pt. ANM contacted [facility] and spoke with community organization worker Esperanza informing her to let pt's RN know that the copy cutter will be coming since pt's RN is busy with another pt.
--- NOTE | 2018-08-18 13:46 | NUR ---
NAM received a call from pt's ADILIA Reynolds informing SW that pt's family is requesting list of burial, homes and cremation resources. NAM met with pt's daughter and gave her a list of burial, homes and cremation resources along with brochure for [facility]. Addendum: 08/18/18 at 1350 by ERMA BROWNING Family confirmed that a quality assurance specialist did come to see the pt.
--- NOTE | 2018-08-18 14:55 | NUR ---
NECK BAND OPERATOR NOTE PT'S FAMILY ARRIVED FROM OUT OF TOWN AND ARE AT PT'S BEDSIDE. PT'S DAUGHTER, HARINI REQUESTED THAT WE START THE PROCESS OF COMFORT MEASURES, MORPHINE GTT STARTED, DIPRIVAN DISCONTINUED. GARRETT, CONTACTED. WILL CONTINUE TO MONITOR PT.
[2018-08-18] MEDS ORDERED: SCOPOLAMINE HBR 1 EA PATCH.TD72 TD ONE (16:00)
[2018-08-18] MEDS ORDERED: LORAZEPAM INJ 2 MG/ML VIAL IV PRN (16:00)
[2018-08-18] MEDS ORDERED: DC PROPOFOL WHEN EXTUBATED XX PRN (16:17)
--- NOTE | 2018-08-18 16:40 | NUR ---
RT PT EXTUBATED PER MD ORDER FOR COMFORT MEASURES. PT PLACED ON SIMPLE MASK 10L, RN AND CHARGE NURSE NOTIFIED AND AWARE. Addendum: 08/18/18 at 1646 by KOMAL BREEN RT Amended: Links added.
--- NOTE | 2018-08-18 16:45 | NUR ---
BOARD OPERATOR NOTE TERMINAL EXTUBATION DONE PT'S FAMILY AT BEDSIDE. MORPHINE GTT INFUSING. WILL CONTINUE TO MONITOR.
--- NOTE | 2018-08-18 17:21 | NUR ---
MACHINE STONE POLISHER APPRENTICE NOTE PT AT 1715 PRONOUNCED BY PINKY RN AND ADILIA CARRERA. PT'S FAMILY AT BEDSIDE NOTIFIED. PT'S FAMILY WERE GIVEN TISSUES AND WATER FOR COMFORT. WILL CONTINUE TO COMMUNICATE WITH FAMILY MEMBERS REGARDING NEEDS.
--- NOTE | 2018-08-18 17:30 | NUR ---
RN NOTES CALLED [facility], SPOKE WITH DEBRA. ALL PERTINENT INFORMATION GIVEN. CASE # [id number].
--- NOTE | 2018-08-18 18:49 | NUR ---
FLOOR STEWARD/STEWARDESS NOTE POST-MORTEM CARE DONE. BODY TRANSFERRED TO THE [place] BY SECURITY GUARDS. PT'S FAMILY HAVE NO ARRANGEMENTS IN PLACE FOR PT. THEY WERE INFORMED THAT PT CAN REMAIN IN THE HOSPITAL'S [place]ORGUE FOR 72 HRS ONLY. THEY ACKNOWLEDGED. HARINI, PT'S DAUGHTER TOOK PT'S BELONGINGS WITH HER.
== END 2018-08-18 17:15 | disposition expired | DRG 870 ==
LOC: ER 09:32 → MEDSG1 11:13 → ICU 08-14 13:35
PROVIDERS: ADMIT Registered Nurse; ATTEND Registered Nurse
PROC: 5A1955Z Respiratory Ventilation, Greater than 96 Consecutive Hours (ICD-10-PCS; principal; 2018-08-14)
PROC: 0BH17EZ Insertion of Endotracheal Airway into Trachea, Via Natural or Artificial Opening (ICD-10-PCS; 2018-08-14)
PROC: 0DJD8ZZ Inspection of Lower Intestinal Tract, Via Natural or Artificial Opening Endoscopic (ICD-10-PCS; 2018-08-15)
DX: A41.9 Sepsis, unspecified organism (principal); I21.A1 Myocardial infarction type 2; R65.21 Severe sepsis with septic shock; J96.01 Acute respiratory failure with hypoxia; J96.02 Acute respiratory failure with hypercapnia; K63.1 Perforation of intestine (nontraumatic); Z51.5 Encounter for palliative care; J15.1 Pneumonia due to Pseudomonas; E87.1 Hypo-osmolality and hyponatremia; E44.0 Moderate protein-calorie malnutrition; K59.31 Toxic megacolon; G61.81 Chronic inflammatory demyelinating polyneuritis; E87.2 Acidosis; K56.41 Fecal impaction; E86.0 Dehydration; K21.9 Gastro-esophageal reflux disease without esophagitis; I25.10 Atherosclerotic heart disease of native coronary artery without angina pectoris; N31.9 Neuromuscular dysfunction of bladder, unspecified; E87.6 Hypokalemia; E88.09 Other disorders of plasma-protein metabolism, not elsewhere classified; R33.9 Retention of urine, unspecified; I25.2 Old myocardial infarction; E80.6 Other disorders of bilirubin metabolism
CPT/HCPCS: 31720; 36415; 36600; 70450-TC; 71045-TC; 74018; 80048-TC; 80053-TC; 80061-TC; 80076-TC; 81000-TC; 82533; 82803-TC; 82962-TC; 83605-TC; 83690-TC; 83735-TC; 84100-TC; 84443-TC; 84484-TC; 85025-TC; 85730-TC; 87040-TC; 87070-TC; 87081-TC; 87086-TC; 87186-TC; 93307-TC; 94002-TC; 94003-TC; 94640-TC; 94760-TC; 94799-TC; A4606; A6402; A6403; A9563; C9113; J0456; J0696; J2274; J2405; J2543; J2765; J3475; J3480; J3490; J7030; J7040; J7050; J7060; J7512; Z7610